=== PATIENT | female | born 1970 | race Caucasian/White ===

== ENCOUNTER → 2019-12-06 | Day surgery (SDC) | payer BC ==
[2019-11-30 10:45] LABS: Basophils # (auto) 0 10 ^3/uL (0-0.2); Basophils % (auto) 0.8 % (0.0-2.0); Eosinophils # (auto) 0.1 10 ^3/uL (0-0.8); Eosinophils % (auto) 1.7 % (0.0-7.0); Hematocrit 47.6 % (36.0-46.0); Lymphocytes # (auto) 2.2 10 ^3/uL (0.4-5.4); Mean Corpuscular Hemoglobin 30.3 pg (28.0-32.0); Mean Corpuscular Hgb Conc. 33.6 g/dL (32.0-36.0); Mean Corpuscular Volume 90.2 fL (80.0-100.0); Monocytes # (auto) 0.6 10 ^3/uL (0-1.3); Monocytes % (auto) 9.6 % (0.0-12.0); Neutrophils % (auto) 50.9 % (37.0-80.0); Platelet Count (auto) 235 10^3/uL (140-450); Red Blood Cells 5.28 10^6/uL (4.0-5.20); Red Cell Distribution Width 13.7 % (11.8-14.3); White Blood Cell 5.9 10^3/uL (4.4-10.8)
[2019-11-30 10:51] LABS: Urine Bacteria NONE SEEN /hpf (None Seen); Urine Blood Negative /uL (Negative); Urine Mucus FEW (None Seen); Urine Specific Gravity 1.023 (1.001-1.035); Urine WBC 7 /hpf (0 - 5)
[2019-11-30 11:05] LABS: INR 0.96 (0.9-1.15)
[2019-11-30 11:09] LABS: Calcium 9.7 mg/dL (8.5-10.1); Potassium 3.9 mmol/L (3.5-5.1)
[2019-11-30 11:12] LABS: BUN/Creatinine Ratio 19.2; Bilirubin, Total 0.4 mg/dL (0.2-1.0); Total Protein 8.1 g/dL (6.4-8.2)
[~2019-12-06] VITALS: Ht 162.6 cm; Wt 72.6 kg
[~2019-12-06] MED LIST: CHOL20009 PO; DexAMETHasone SOD PHOS 10MG/1ML VIAL INJ ONE; FERR-20 PO; GABA300C10 PO; HYDR-3682 PO; HYDROmorphone HCL 2 MG/ML VL IV PRN; KETOROLAC TROMETH 30 MG/ML 1ML VIAL IV ONE; LABETALOL HCL 5 MG/ML 4ML SYRINGE IV PRN; LINA145C PO; MEPERIDINE HCL (25 MG/ML) 1ML VIAL ONE; MIDAZOLAM HCL 1MG/1ML-2 ML VIAL IV PRN; MIDAZOLAM HCL 1MG/1ML-2 ML VIAL ONE; MIRT1TAB38 PO; MORPHINE SULFATE 4 MG/ML SYR/VIAL IV PRN; ONDANSETRON HCL 4 MG/2 ML VIAL IV PRN; PROPOFOL 10 MG/ML 20 ML IV ONE; QUET200T44 PO; RIS1T PO; ROPI1TAB2 PO; ROPIVACAINE 0.5% (5MG/ML) 20ML AMPULE IJ ONE; ROSU20TA14 PO; SERT-274 PO; ceFAZolin 1GM/50ML 50 ML IV ONE; ePHEDrine SULFATE 50 MG/ML AMP IV PRN; fentaNYL CITRATE 100 MCG/2 ML VL ONE; methylPREDNISolone ACETATE 80 MG/ML VL ONE
[2019-12-06 10:34] VITALS: BP 116/74
== END | disposition home or self-care (01) ==
LOC: SUR 08:01
PROVIDERS: ATTEND Podiatrist Foot & Ankle Surgery
DX: M72.2 Plantar fascial fibromatosis (principal); M21.962 Unspecified acquired deformity of left lower leg; F32.9 Major depressive disorder, single episode, unspecified; F41.9 Anxiety disorder, unspecified; Z90.710 Acquired absence of both cervix and uterus; Z98.890 Other specified postprocedural states; Z11.59 Encounter for screening for other viral diseases
CPT/HCPCS: 29893; 29999; 36415; 80053; 81001; 85025; 85610; 85730; J0690; J1040; J1100; J2175; J2250; J2704; J2795; J3010; U0003

== ENCOUNTER → 2020-02-07 | Day surgery (SDC) | payer BC ==
[2020-02-01 14:43] LABS: Urine WBC None Seen /hpf (0 - 5)
[2020-02-01 14:47] LABS: Basophils # (auto) 0 10 ^3/uL (0-0.2); Basophils % (auto) 0.8 % (0.0-2.0); Eosinophils # (auto) 0 10 ^3/uL (0-0.8); Eosinophils % (auto) 0.6 % (0.0-7.0); Hematocrit 45.6 % (36.0-46.0); Hemoglobin 15.4 g/dL (12.2-16.2); Lymphocytes # (auto) 2.5 10 ^3/uL (0.4-5.4); Lymphocytes % (auto) 40.7 % (10.0-50.0); Mean Corpuscular Hemoglobin 30.8 pg (28.0-32.0); Mean Corpuscular Hgb Conc. 33.7 g/dL (32.0-36.0); Mean Corpuscular Volume 91.3 fL (80.0-100.0); Monocytes # (auto) 0.6 10 ^3/uL (0-1.3); Monocytes % (auto) 9.5 % (0.0-12.0); Neutrophils % (auto) 48.4 % (37.0-80.0); Nucleated Red Blood Cells % 0.1 %; Platelet Count (auto) 258 10^3/uL (140-450); Red Blood Cells 4.99 10^6/uL (4.0-5.20); White Blood Cell 6.2 10^3/uL (4.4-10.8)
[2020-02-01 14:58] LABS: Urine Amorphous Crystal FEW /hpf (None Seen); Urine Bacteria NONE SEEN /hpf (None Seen); Urine Blood Negative /uL (Negative); Urine Specific Gravity 1.014 (1.001-1.035)
[2020-02-01 15:08] LABS: INR 0.99 (0.9-1.15); Partial Thromboplastin Time 26.8 sec (23.0-31.2)
[2020-02-01 15:11] LABS: Albumin 4.1 g/dL (3.4-5.0); Calcium 9.2 mg/dL (8.5-10.1); Potassium 3.8 mmol/L (3.5-5.1)
[2020-02-01 15:13] LABS: BUN/Creatinine Ratio 13.6
[2020-02-01 15:16] LABS: Bilirubin, Total 0.4 mg/dL (0.2-1.0); Total Protein 7.5 g/dL (6.4-8.2)
[~2020-02-07] VITALS: Ht 162.6 cm; Wt 68.0 kg
[~2020-02-07] MED LIST changes: -DexAMETHasone SOD PHOS 10MG/1ML VIAL INJ ONE; +KETAMINE HCL 10 ML ONE; -LABETALOL HCL 5 MG/ML 4ML SYRINGE IV PRN; +LIDOCAINE 1% HCL (LOCAL ANESTH.) INJ 20ML MDV ONE; -MEPERIDINE HCL (25 MG/ML) 1ML VIAL ONE; -MIDAZOLAM HCL 1MG/1ML-2 ML VIAL IV PRN; +NEOMYCIN-BACITRACIN-POLYM 15GM TOP OINT TOP ONE; -ONDANSETRON HCL 4 MG/2 ML VIAL IV PRN; +ONDANSETRON HCL 4 MG/2 ML VIAL ONE; +SODIUM CHLORIDE LOCK 10 ML ONE; -ePHEDrine SULFATE 50 MG/ML AMP IV PRN
[2020-02-07 09:15] VITALS: BP 127/93
== END | disposition home or self-care (01) ==
LOC: SUR 06:08
PROVIDERS: ATTEND Podiatrist Foot & Ankle Surgery
DX: M72.2 Plantar fascial fibromatosis (principal); M21.962 Unspecified acquired deformity of left lower leg; F32.9 Major depressive disorder, single episode, unspecified; F41.9 Anxiety disorder, unspecified; D64.9 Anemia, unspecified; J45.909 Unspecified asthma, uncomplicated; G62.9 Polyneuropathy, unspecified; Z20.828 Contact with and (suspected) exposure to other viral communicable diseases; Z90.710 Acquired absence of both cervix and uterus
CPT/HCPCS: 29893; 29999; 36415; 80053; 81001; 85025; 85610; 85730; J0690; J1040; J2001; J2250; J2405; J2704; J2795; J3010; U0003

== ENCOUNTER 2020-08-28 06:55 | Inpatient (IN) | payer BC ==
[2020-08-27 15:33] LABS: Basophils # (auto) 0 10 ^3/uL (0-0.2); Basophils % (auto) 0.7 % (0.0-2.0); Eosinophils # (auto) 0.1 10 ^3/uL (0-0.8); Eosinophils % (auto) 1.4 % (0.0-7.0); Hematocrit 47.8 % (36.0-46.0); Hemoglobin 16.4 g/dL (12.2-16.2); Lymphocytes # (auto) 2.8 10 ^3/uL (0.4-5.4); Lymphocytes % (auto) 45.2 % (10.0-50.0); Mean Corpuscular Hemoglobin 31.9 pg (28.0-32.0); Mean Corpuscular Hgb Conc. 34.3 g/dL (32.0-36.0); Mean Corpuscular Volume 93.1 fL (80.0-100.0); Monocytes # (auto) 0.5 10 ^3/uL (0-1.3); Monocytes % (auto) 8.2 % (0.0-12.0); Neutrophils # (auto) 2.8 10 ^3/uL (1.6-8.6); Neutrophils % (auto) 44.5 % (37.0-80.0); Nucleated Red Blood Cells % 0.2 %; Platelet Count (auto) 221 10^3/uL (140-450); Red Blood Cells 5.13 10^6/uL (4.0-5.20); Red Cell Distribution Width 13.9 % (11.8-14.3); White Blood Cell 6.2 10^3/uL (4.4-10.8)
[2020-08-27 15:39] LABS: Urine Bacteria FEW /hpf (None Seen); Urine Blood Negative /uL (Negative); Urine Mucus FEW (None Seen); Urine Specific Gravity 1.021 (1.001-1.035); Urine WBC 6 /hpf (0 - 5)
[2020-08-27 15:49] LABS: Calcium 9.3 mg/dL (8.5-10.1); INR 0.98 (0.9-1.15); Partial Thromboplastin Time 27.5 sec (23.0-31.2); Potassium 3.7 mmol/L (3.5-5.1)
[2020-08-27 15:55] LABS: Albumin 4.1 g/dL (3.4-5.0); BUN/Creatinine Ratio 15.1; Bilirubin, Total 0.5 mg/dL (0.2-1.0); Total Protein 7.6 g/dL (6.4-8.2)
[~2020-08-28] VITALS: Ht 162.6 cm; Wt 71.3 kg
[~2020-08-28 06:55] MED LIST changes: -CHOL20009 PO; -FERR-20 PO; -HYDR-3682 PO; +HYDR1SYP3 PO; -HYDROmorphone HCL 2 MG/ML VL IV PRN; -KETAMINE HCL 10 ML ONE; -KETOROLAC TROMETH 30 MG/ML 1ML VIAL IV ONE; -LIDOCAINE 1% HCL (LOCAL ANESTH.) INJ 20ML MDV ONE; -LINA145C PO; -MIDAZOLAM HCL 1MG/1ML-2 ML VIAL ONE; -MORPHINE SULFATE 4 MG/ML SYR/VIAL IV PRN; -NEOMYCIN-BACITRACIN-POLYM 15GM TOP OINT TOP ONE; -ONDANSETRON HCL 4 MG/2 ML VIAL ONE; -PROPOFOL 10 MG/ML 20 ML IV ONE; -RIS1T PO; +RISP0.5T45 PO; -ROPIVACAINE 0.5% (5MG/ML) 20ML AMPULE IJ ONE; -ROSU20TA14 PO; -SODIUM CHLORIDE LOCK 10 ML ONE; -ceFAZolin 1GM/50ML 50 ML IV ONE; -fentaNYL CITRATE 100 MCG/2 ML VL ONE; -methylPREDNISolone ACETATE 80 MG/ML VL ONE
[2020-08-28] MEDS ORDERED: ROPIVACAINE 0.5% (5MG/ML) 20ML AMPULE IJ ONE (08:08)
[2020-08-28] MEDS ORDERED: ceFAZolin 1GM/50ML 50 ML IV ONE (08:20)
[2020-08-28] MEDS ORDERED: fentaNYL CITRATE 100 MCG/2 ML VL ONE (08:31)
[2020-08-28] MEDS ORDERED: MIDAZOLAM HCL 1MG/1ML-2 ML VIAL ONE (08:32)
[2020-08-28] MEDS ORDERED: SUCCINYLCHOLINE CHLORIDE 20 MG/ML 10ML VIAL IV ONE (08:52)
[2020-08-28] MEDS ORDERED: PROPOFOL 10 MG/ML 20 ML IV ONE (08:52)
[2020-08-28] MEDS ORDERED: IPRATROPIUM BROM 0.5 MG/2.5ML INH SOL ONE (09:57)
[2020-08-28] MEDS ORDERED: ALBUTEROL SULF 2.5 MG/0.5ML(0.5%) NEB SOLN ONE (09:57)
[2020-08-28] MEDS ORDERED: ALBUTEROL SULF 2.5 MG/0.5ML(0.5%) NEB SOLN NEB ONE (10:00)
[2020-08-28] MEDS ORDERED: IPRATROPIUM BROM 0.5 MG/2.5ML INH SOL NEB ONE (10:00)
[2020-08-28] MEDS ORDERED: ONDANSETRON HCL 4 MG/2 ML VIAL IV PRN (10:15)
[2020-08-28] MEDS ORDERED: HYDROmorphone HCL 2 MG/ML VL IV PRN (10:15)
[2020-08-28] MEDS ORDERED: HYDROmorphone HCL 2 MG/ML VL ONE (13:50)
[2020-08-28] MEDS ORDERED: NITROGLYCERIN 0.4 MG SL TAB SL PRN (14:15)
[2020-08-28] MEDS ORDERED: MORPHINE SULF INJ 2 MG/ML SYRINGE 1ML IV PRN (14:15)
[2020-08-28] MEDS ORDERED: ACETAMINOPHEN 500 MG TAB PO PRN (14:15)
[2020-08-28] MEDS ORDERED: CLINDAMYCIN 600MG IV 50 ML IV ONE (14:15)
[2020-08-28] MEDS ORDERED: levoFLOXacin 500MG 100 ML IV ONE (14:15)
[2020-08-28 14:53] VITALS: BP 104/67
[2020-08-28 15:08] LABS: Basophils # (auto) 0 10 ^3/uL (0-0.2); Basophils % (auto) 0.2 % (0.0-2.0); Eosinophils # (auto) 0 10 ^3/uL (0-0.8); Eosinophils % (auto) 0.1 % (0.0-7.0); Hematocrit 45.6 % (36.0-46.0); Hemoglobin 15.6 g/dL (12.2-16.2); Lymphocytes # (auto) 1.1 10 ^3/uL (0.4-5.4); Lymphocytes % (auto) 9.6 % (10.0-50.0); Mean Corpuscular Hemoglobin 31.7 pg (28.0-32.0); Mean Corpuscular Hgb Conc. 34.2 g/dL (32.0-36.0); Mean Corpuscular Volume 92.9 fL (80.0-100.0); Monocytes # (auto) 0.7 10 ^3/uL (0-1.3); Neutrophils # (auto) 9.8 10 ^3/uL (1.6-8.6); Neutrophils % (auto) 84.1 % (37.0-80.0); Nucleated Red Blood Cells % 0.1 %; Platelet Count (auto) 192 10^3/uL (140-450); Red Blood Cells 4.91 10^6/uL (4.0-5.20); Red Cell Distribution Width 13.8 % (11.8-14.3); White Blood Cell 11.7 10^3/uL (4.4-10.8)
[2020-08-28 15:23] LABS: BUN/Creatinine Ratio 16.7; Calcium 8.7 mg/dL (8.5-10.1); Potassium 4.2 mmol/L (3.5-5.1)
[2020-08-28 16:30] VITALS: BP 104/64
[2020-08-28 17:00] VITALS: BP 104/64
[2020-08-28] MEDS: SODIUM CHLORIDE 0.9% 1,000 ML IV SCH (17:32)
[2020-08-28] MEDS: HYDROcodone-ACET 5/325MG TAB PO PRN (17:33)
[2020-08-28] MEDS: MORPHINE SULF INJ 2 MG/ML SYRINGE 1ML IV PRN ×2 (18:10→22:07)
[2020-08-28] MEDS: IPRATROPIUM BROM 0.5 MG/2.5ML INH SOL NEB SCH (18:43)
[2020-08-28] MEDS: ALBUTEROL SULF 2.5 MG/0.5ML(0.5%) NEB SOLN NEB SCH (18:43)
[2020-08-28 20:00] VITALS: BP 105/68
[2020-08-28] MEDS: CLINDAMYCIN 600MG IV 50 ML IV SCH (21:50)
[2020-08-28 22:00] VITALS: BP 105/68
[2020-08-29] MEDS: HYDROcodone-ACET 5/325MG TAB PO PRN ×3 (00:16→18:56)
[2020-08-29] MEDS: SODIUM CHLORIDE 0.9% 1,000 ML IV SCH (03:35)
[2020-08-29] MEDS: MORPHINE SULF INJ 2 MG/ML SYRINGE 1ML IV PRN ×5 (03:54→21:30)
[2020-08-29 05:00] VITALS: BP 105/60
[2020-08-29 05:41] LABS: Basophils # (auto) 0 10 ^3/uL (0-0.2); Basophils % (auto) 0.4 % (0.0-2.0); Eosinophils # (auto) 0.1 10 ^3/uL (0-0.8); Eosinophils % (auto) 1.7 % (0.0-7.0); Hematocrit 42.2 % (36.0-46.0); Hemoglobin 14.4 g/dL (12.2-16.2); Lymphocytes # (auto) 1.7 10 ^3/uL (0.4-5.4); Lymphocytes % (auto) 27.8 % (10.0-50.0); Mean Corpuscular Hemoglobin 32.1 pg (28.0-32.0); Mean Corpuscular Hgb Conc. 34.2 g/dL (32.0-36.0); Mean Corpuscular Volume 93.7 fL (80.0-100.0); Monocytes # (auto) 0.6 10 ^3/uL (0-1.3); Neutrophils # (auto) 3.6 10 ^3/uL (1.6-8.6); Neutrophils % (auto) 60.1 % (37.0-80.0); Nucleated Red Blood Cells % 0.1 %; Platelet Count (auto) 185 10^3/uL (140-450); Red Cell Distribution Width 13.9 % (11.8-14.3); White Blood Cell 5.9 10^3/uL (4.4-10.8)
[2020-08-29 05:51] LABS: Calcium 8.4 mg/dL (8.5-10.1)
[2020-08-29] MEDS: CLINDAMYCIN 600MG IV 50 ML IV SCH ×3 (05:59→21:28)
[2020-08-29] MEDS: IPRATROPIUM BROM 0.5 MG/2.5ML INH SOL NEB SCH ×3 (06:35→17:52)
[2020-08-29] MEDS: ALBUTEROL SULF 2.5 MG/0.5ML(0.5%) NEB SOLN NEB SCH ×3 (06:35→17:52)
[2020-08-29] MEDS: levoFLOXacin 500MG 100 ML IV SCH (08:44)
[2020-08-29 09:00] VITALS: BP 115/83
[2020-08-29 12:38] VITALS: BP 107/72
[2020-08-29] MEDS ORDERED: FAMOTIDINE (10MG/ML) 2ML VL IV ONE (14:45)
[2020-08-29] MEDS: ONDANSETRON HCL 4 MG/2 ML VIAL IV PRN (14:49)
[2020-08-29 16:29] VITALS: BP 101/67
[2020-08-29 20:00] VITALS: BP 100/65
[2020-08-29 22:00] VITALS: BP 100/65
[2020-08-30] MEDS: MORPHINE SULF INJ 2 MG/ML SYRINGE 1ML IV PRN ×3 (02:11→13:24)
[2020-08-30 05:00] VITALS: BP 102/68
[2020-08-30] MEDS: CLINDAMYCIN 600MG IV 50 ML IV SCH ×3 (05:37→22:18)
[2020-08-30] MEDS: HYDROcodone-ACET 5/325MG TAB PO PRN ×3 (05:45→19:08)
[2020-08-30] MEDS: ALBUTEROL SULF 2.5 MG/0.5ML(0.5%) NEB SOLN NEB SCH ×3 (06:50→19:58)
[2020-08-30] MEDS: IPRATROPIUM BROM 0.5 MG/2.5ML INH SOL NEB SCH ×3 (06:50→19:58)
[2020-08-30 09:00] VITALS: BP 104/73
[2020-08-30] MEDS: FAMOTIDINE (10MG/ML) 2ML VL IV SCH (10:11)
[2020-08-30] MEDS: levoFLOXacin 500MG 100 ML IV SCH (10:11)
[2020-08-30 13:00] VITALS: BP 114/82
[2020-08-30] MEDS: ONDANSETRON HCL 4 MG/2 ML VIAL IV PRN (13:42)
[2020-08-30 17:00] VITALS: BP 109/70
[2020-08-30 21:37] VITALS: BP 115/70
[2020-08-30] MEDS: LORazepam 2MG/ML-1ML VIAL IV PRN (22:17)
[2020-08-31] VITALS (7 sets, daily range): BP systolic 95–108; BP diastolic 61–75
[2020-08-31] MEDS: CLINDAMYCIN 600MG IV 50 ML IV SCH ×3 (05:25→21:36)
[2020-08-31] MEDS: ALBUTEROL SULF 2.5 MG/0.5ML(0.5%) NEB SOLN NEB SCH ×3 (06:42→19:51)
[2020-08-31] MEDS: IPRATROPIUM BROM 0.5 MG/2.5ML INH SOL NEB SCH ×3 (06:42→19:51)
[2020-08-31] MEDS: FAMOTIDINE (10MG/ML) 2ML VL IV SCH (10:07)
[2020-08-31] MEDS: levoFLOXacin 500MG 100 ML IV SCH (10:07)
[2020-08-31] MEDS: LORazepam 2MG/ML-1ML VIAL IV PRN (10:29)
[2020-08-31] MEDS: MORPHINE SULF INJ 2 MG/ML SYRINGE 1ML IV PRN (20:04)
[2020-09-01 05:11] VITALS: BP 93/67
[2020-09-01] MEDS: CLINDAMYCIN 600MG IV 50 ML IV SCH ×3 (05:43→22:40)
[2020-09-01] MEDS: IPRATROPIUM BROM 0.5 MG/2.5ML INH SOL NEB SCH ×3 (07:42→19:40)
[2020-09-01] MEDS: ALBUTEROL SULF 2.5 MG/0.5ML(0.5%) NEB SOLN NEB SCH ×3 (07:42→19:40)
[2020-09-01 08:15] VITALS: BP 107/68
[2020-09-01 09:00] VITALS: BP 107/68
[2020-09-01] MEDS: FAMOTIDINE (10MG/ML) 2ML VL IV SCH (10:22)
[2020-09-01] MEDS: MORPHINE SULF INJ 2 MG/ML SYRINGE 1ML IV PRN ×2 (10:22→18:16)
[2020-09-01] MEDS: levoFLOXacin 500MG 100 ML IV SCH (10:22)
[2020-09-01] MEDS: LORazepam 2MG/ML-1ML VIAL IV PRN ×2 (12:32→20:52)
[2020-09-01 22:00] VITALS: BP 120/83
[2020-09-02 05:00] VITALS: BP 93/58
[2020-09-02] MEDS: CLINDAMYCIN 600MG IV 50 ML IV SCH ×2 (05:57→14:00)
[2020-09-02] MEDS: IPRATROPIUM BROM 0.5 MG/2.5ML INH SOL NEB SCH ×2 (08:08→12:50)
[2020-09-02] MEDS: ALBUTEROL SULF 2.5 MG/0.5ML(0.5%) NEB SOLN NEB SCH ×2 (08:08→12:51)
[2020-09-02 08:44] VITALS: BP 102/64
[2020-09-02] MEDS: LORazepam 2MG/ML-1ML VIAL IV PRN (09:00)
[2020-09-02] MEDS: levoFLOXacin 500MG 100 ML IV SCH (09:41)
[2020-09-02] MEDS: FAMOTIDINE (10MG/ML) 2ML VL IV SCH (09:42)
[2020-09-02 11:59] VITALS: BP 102/62
[2020-09-02 13:07] VITALS: BP 101/63
== END 2020-09-02 14:11 | disposition home or self-care (01) | DRG 987 ==
LOC: SUR 06:55 → TELE 14:13 → TELE-WESTW 16:32
PROVIDERS: ADMIT Internal Medicine; ATTEND Internal Medicine
PROC: 0QBP0ZZ Excision of Left Metatarsal, Open Approach (ICD-10-PCS; principal; 2020-08-28 08:31)
DX: J96.01 Acute respiratory failure with hypoxia (principal); J69.0 Pneumonitis due to inhalation of food and vomit; M89.9 Disorder of bone, unspecified; F41.9 Anxiety disorder, unspecified; F32.9 Major depressive disorder, single episode, unspecified; Z20.822 Contact with and (suspected) exposure to COVID-19
CPT/HCPCS: 36415; 71045; 71250; 80048; 80053; 81001; 84702; 85025; 85610; 85730; 94640; G0378; J0330; J0690; J1956; J2250; J2405; J3490